=== PATIENT | female | born 1975 | race Two or more races ===

== ENCOUNTER 2017-03-31 19:56 | Emergency (ER) | payer OTHER ==
[2017-03-31 20:10] VITALS: BP 150/96
[2017-03-31] MEDS ORDERED: NS 0.9% 1000 ML* 1,000 ML IV ONE (21:39)
[2017-03-31] MEDS ORDERED: Ondansetron INJ* 2 MG/ML VIAL IV ONE (21:39)
[2017-03-31] MEDS ORDERED: Meclizine TAB* 12.5 MG PO ONE ×2 (21:39→23:24)
--- NOTE | 2017-04-01 13:22 | ED ---
Juhi Mina Nilda, scribed for Sylvain Zaman MD on 03/31/17 at 2147 . Dizziness - HPI Summary HPI Summary: This patient is a 41 year old F presenting to [facility] accompanied by with a chief complaint of dizziness (room spinning) at 2.5 hours ago. The patient rates the pain 0/10 in severity. Symptoms aggravated by movement. Symptoms alleviated by rest. Patient reports nausea, vomiting, insomnia, diaphoresis, SOB , chills (resolved), and irregular menstrual periods. Patient denies auditory hallucination (ringing), ear pain, sinus issues, headache, dysuria, and hematuria. PMHx includes anxiety (controlled), HTN, vertigo (7 years ago). - History Of Current Complaint Chief Complaint: EDDizziness Stated Complaint: NAUSEA/VOMITING Time Seen by Provider: 03/31/17 20:50 Hx Obtained From: Patient Onset/Duration: Still Present Timing: Constant Severity Currently: Moderate Character: Room Spinning Aggravating Factor(s): Other - Movement Alleviating Factor(s): Rest Associated Signs And Symptoms: Positive: Other: - reports nausea, vomiting, insomnia, chills, diaphoresis, SOB, anxiety, chills (resolved), and irregular menstrual periods. Patient denies ear pressure, sinus issues, headache, migraines, dysuria, and hematuria. - Allergies/Home Medications Allergies/Adverse Reactions: Allergies Allergy/AdvReac Type Severity Reaction Status Date / Time Aspirin [ASA] Allergy Severe Anaphylatic Verified 11/30/15 18:40 Shock Ibuprofen Allergy Severe Difficulty Verified 11/30/15 18:40 Breathing/Wheezing Sulfa Antibiotics Allergy Severe Difficulty Verified 11/30/15 18:40 Breathing/Wheezing PMH/Surg Hx/FS Hx/Imm Hx Endocrine/Hematology History: Denies: Hx Diabetes, Hx Thyroid Disease Cardiovascular History: Reports: Hx Hypertension - chronic HTN Respiratory History: Denies: Hx Asthma History: Denies: Hx Kidney Infection, Other Problems/Disorders Psychiatric History: Reports: Hx Anxiety - taking Effexor Denies: Hx Depression, Other Psychiatric Issues/Disorders - Immunization History Date of Tetanus Vaccine: UNKNOWN Immunizations Up to Date: Yes Infectious Disease History: No Infectious Disease History: Denies: Traveled Outside the [place] in Last 30 Days - Social History Alcohol Use: None Alcohol Amount: once every other week Substance Use Type: Reports: None Smoking Status (MU): Never Smoked Tobacco Have You Smoked in the Last Year: No Review of Systems Positive: Chills, Skin Diaphoresis. Negative: Fever Negative: Erythema ENT: Other - negative sinus issues, auditory hallucination (ringing) Negative: Sore Throat, Ear Ache Negative: Chest Pain Positive: Shortness Of Breath. Negative: Cough Positive: Vomiting, Nausea. Negative: Abdominal Pain Genitourinary: Other - irregular menstrual periods Negative: dysuria, hematuria Neurological: Other - dizziness, insomnia Negative: Headache All Other Systems Reviewed And Are Negative: Yes Physical Exam - Summary Physical Exam Summary: Constitutional: Well-developed, Well-nourished, Alert. (-) Distressed Skin: Warm, Dry Eyes: Conjunctiva normal Neck: Musculoskeletal ROM normal neck. (-) JVD, (-) Stridor, (-) Tracheal deviation Cardio: Rhythm regular, rate normal, Heart sounds normal; Intact distal pulses; The pedal pulses are 2+ and symmetric. Radial pulses are 2+ and symmetric. (-) Murmur Pulmonary/Chest wall: Effort normal. (-) Respiratory distress, (-) Wheezes, (-) Rales Abd: Soft. (-) Tenderness, (-) Distension, (-) Guarding, (-) Rebound Musculoskeletal: (-) Edema Lymph: (-) Cervical adenopathy Neuro: Alert, Oriented x3, Strength normal, Cranial nerves II-XII are grossly intact. (-) Dysmetria, (-) Nystagmus, (-) Ataxia by finger to nose testing, (-) Sensory deficit. Vertigo exacerbated by head movement to the right with laying patient backwards, lateralized to the right. Psych: Mood and affect Normal Triage Information Reviewed: Yes Vital Signs On Initial Exam: Initial Vitals Temp Pulse Resp BP Pulse Ox 97 F 95 20 150/96 100 03/31/17 20:05 03/31/17 20:05 03/31/17 20:05 03/31/17 20:05 03/31/17 20:05 Vital Signs Reviewed: Yes - S [place] Coma Scale Coma Scale Total: 15 Diagnostics - Vital Signs Vital Signs Temp Pulse Resp BP Pulse Ox 03/31/17 20:05 97 F 95 20 150/96 100 - Laboratory Lab Statement: Any lab studies that have been ordered have been reviewed, and results considered in the medical decision making process. Dizzy Course/Dx - Course Course Of Treatment: This patient is a 41 year old F presenting to [facility] accompanied by with a chief complaint of dizziness (room spinning) at 2.5 hours ago. The patient rates the pain 0/10 in severity. Symptoms aggravated by movement. Symptoms alleviated by rest. Patient reports nausea, vomiting, insomnia, diaphoresis, SOB, chills (resolved), and irregular menstrual periods. Patient denies auditory hallucination (ringing), ear pain, sinus issues, headache, dysuria, and hematuria. PMHx includes anxiety (controlled), HTN, vertigo (7 years ago). Patient will be discharged with a diagnosis of benign positional vertigo with a prescription for Meclizine and follow up from PCP in 2 -3 days. The patient is agreeable with this plan. - Diagnoses Provider Diagnoses: Benign positional vertigo Discharge - Discharge Plan Condition: Stable Disposition: HOME Prescriptions: Meclizine TAB* [Antivert 12.5 TAB*] 25 mg PO Q8H PRN #9 tab PRN Reason: Nausea/Vomiting Patient Education Materials: Benign Paroxysmal Positional Vertigo (ED) Forms: *Work Release Referrals: Rashi Olivier MD [Primary Care Provider] - 3 Days Additional Instructions: RETURN TO THE EMERGENCY DEPARTMENT FOR CHANGING OR WORSENING SYMPTOMS. The documentation as recorded by the Juhi puente Nilda accurately reflects the service I personally performed and the decisions made by , Sylvain Zaman MD.
== END 2017-03-31 23:42 | disposition home or self-care (01) ==
LOC: ED 19:56
DX: H81.10 Benign paroxysmal vertigo, unspecified ear (principal); I10 Essential (primary) hypertension; F41.9 Anxiety disorder, unspecified; Z88.2 Allergy status to sulfonamides
CPT/HCPCS: 96360; 96374; 99282; A9270-GY; J2405